=== PATIENT | female | born 1990 | race American Indian/Alaskan Native ===

== ENCOUNTER 2020-06-06 17:52 | Emergency (ER) | payer SELFPAY ==
[2020-06-06 17:59] VITALS: BP 115/70
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
== END 2020-06-06 18:50 | disposition left against medical advice (07) ==
LOC: ED 17:52
DX: Z04.1 Encounter for examination and observation following transport accident (principal); Z53.21 Procedure and treatment not carried out due to patient leaving prior to being seen by health care provider